=== PATIENT | male | born 1965 | race American Indian/Alaskan Native ===

== ENCOUNTER 2017-01-04 09:59 | Outpatient (CLI) | payer BC ==
--- NOTE | 2017-01-04 11:48 | Cat Scan Report ---
CT SINUSES WITHOUT CONTRAST: INDICATION: Chronic stuffy nose, allergic rhinitis. COMPARISON: None similar at this institution. FINDINGS: Noncontrast sinus CT demonstrates slight leftward nasal septal bowing and evidence of prior endoscopic sinus surgery, including resection of bilateral ostiomeatal complexes. Chronic right maxillary sinus mucoperiosteal changes with wall and mucosal thickening noted with suspected widening of right infraorbital foramen as well. Left maxillary sinus mucosal thickening also seen, greatest inferiorly. Mild bilateral sphenoid sinus mucosal thickening anteriorly. Mild mucosal thickening in the residual frontoethmoid air cells as well, right more than left. Imaged temporal bone air cells appear clear. Bilateral external auditory canal debris may be directly visualized. Normal eye globes with unremarkable retrobulbar fat. Normal imaged intracranial appearance. CONCLUSION: 1. Bilateral maxillary, sphenoid and residual frontoethmoid sinus mucosal thickening in this patient with chronic right maxillary sinusitis and prior functional endoscopic sinus surgery, as described. 2. Few other incidental findings, including mild nasal septal deviation. Thank you for the opportunity to participate in this patient's care.
== END 2017-01-04 10:00 | disposition home or self-care (01) ==
LOC: CT 09:59
PROVIDERS: ATTEND Chiropractor
DX: J30.9 Allergic rhinitis, unspecified (principal); J32.0 Chronic maxillary sinusitis
CPT/HCPCS: 70486